=== PATIENT | female | born 1970 ===

== ENCOUNTER 2017-08-16 09:54 | Day surgery (SDC) | payer OTHER, SELFPAY ==
[2017-08-15 11:19] VITALS: RESP 18
[2017-08-16 10:35] VITALS: BMI 34.9
[2017-08-16] MEDS ORDERED: Lidocaine 1% Inj (20ml) ONE ×2 (10:46→12:43)
[2017-08-16] MEDS ORDERED: Bupivacaine 0.5% Inj(30mL) ONE (12:43)
[2017-08-16] MEDS ORDERED: Lidocaine 2% w Epi 1:100,000 Inj IJ ONE (12:43)
[2017-08-16] MEDS ORDERED: ceFAZolin IV 1 gm in Dextrose 1 GM/50 ML BAG IVPB ONE (12:43)
[2017-08-16] MEDS ORDERED: ePHEDrine 50 mg/ml Inj ONE (13:55)
[2017-08-16] MEDS ORDERED: Midazolam 2 MG/2 ML VIAL ONE (13:55)
[2017-08-16] MEDS ORDERED: Succinylcholine 200 mg/10 ml Inj IV ONE (13:55)
[2017-08-16] MEDS ORDERED: Lidocaine 4% (Laryng-O-Jet) Kit MM ONE (13:55)
[2017-08-16] MEDS ORDERED: Propofol 10 mg/ml Inj (20 ML) ONE ×2 (13:55→15:20)
[2017-08-16] MEDS ORDERED: Lactated Ringer's 1,000 ML IV ONE ×2 (14:30→16:30)
[2017-08-16] MEDS ORDERED: Dexamethasone 4 mg/1 ml ONE (15:02)
[2017-08-16] MEDS ORDERED: Dexamethasone 4 mg/1 ml IVP PRN (15:10)
--- NOTE | 2017-08-16 16:06 | PCM.SURG1 ---
Surgeon's Initial Post Op Note - Surgeon's Notes Surgeon: Master Cerna MD Business Management Intern: Sommer Fine PGY-3, Kyrie Rowe PGY-2, Jil Haq PGY-1 Pre-Operative Diagnosis: Left infiltrating ductal carcinoma Operative Findings: See op report Post-Operative Diagnosis: Left infiltrating ductal carcinoma Operation Performed: Lumpectomy with needle localization and sentinel node biopsy of left breast Specimen/Specimens Removed: Left breast mass and needle, sentinel lymph node Estimated Blood Loss: EBL {In ML}: 20 Blood Products Given: N/A Drains Used: No Drains Post-Op Condition: Good Date of Surgery/Procedure: 08/16/17 Time of Surgery/Procedure: 16:06
--- NOTE | 2017-08-16 16:15 | CP.SDSHP ---
Same Day Surgery H & P - History Proposed Procedure: Left breast lumpectomy with needle localization and sentinel lymph node biopsy Pre-Op Diagnosis: Left breast infiltrating ductal carcinoma - Previous Medical/Surgical History Pain: 0. No Pain Previous Surgical History: cholecystectomy, ultrasound guided biopsy of Left breast (07/19/17) - Allergies Allergies: Allergies No Known Allergies Allergy (Verified 08/16/17 10:35) - Physical Exam Vital Signs: Vital Signs 08/16/17 08/16/17 08/16/17 10:23 10:29 12:34 Temperature 98.5 F 97.9 F Pulse Rate 61 61 66 Respiratory 18 18 Rate Blood Pressure 101/64 133/83 O2 Sat by Pulse 99 99 Oximetry - Date & Time Date: 08/16/17 Time: 14:20 Short Stay Discharge - Short Stay Discharge Admitting Diagnosis/Reason for Visit: C50.919/ NEEDLE LOC FOR 1030AM Disposition: HOME/ ROUTINE Referrals: FAMILY PROVIDER,NO [Primary Care Provider] - Gardenia Cerna MD [Staff Provider] - Instructions: Breast Cancer in Women (DC), Breast Conservation Therapy (DC) Additional Instructions (Diet, Activity): Please follow up with Dr. Cerna in the clinic in 1-2 weeks. Keep surgical bra on for 2 days. Dressing can come off in 2 days. There are special bandaids over the incision sites,do not pull or pick these off, they will fall off by themselves. May shower in 2 days after the dressing is removed. Ok to wash area gently with soap and water, do not scrub. Do not bath or get into a hot tub.
--- NOTE | 2017-08-16 16:15 | US ---
HISTORY: Patient is a 38 annual female with history of left breast infiltrating ductal carcinoma, moderately differentiated, Beth grade 2. TECHNIQUE/FINDINGS: Timeout was called for ultrasound guided wire needle localization procedure for lesion: in the position: of the left breast 11-12 o'clock radius 2, approximately 4 cm from the nipple. The mass was identified with ultrasound at the field 07/2012 o'clock radius: Overlying skin was marked for procedure. In a sterile field, overlying skin was cleaned. Three cc of lidocaine 1 percent was utilized for local anesthesia and under ultrasound control, a 10 cm cm needle was placed through the mass immediately inferior to the ultrasound-guided biopsy clip previously deployed. Subsequently, the accompanying wire was advanced through the needle and deployed with the stiffener at the level of the mass successfully. Post placement confirmation ultrasonography was performed. Mammography could not be performed to confirm local placement due to technical failure of the machine precluding issues entirely. The wire was properly secured in good position. Patient tolerated the procedure well with no complications. Postoperative specimen radiograph (performed by standard x-ray unit) demonstrates the needle within the lumpectomy specimen and the biopsy clip immediately cephalad to it. OTHER FINDINGS: None. IMPRESSION: Status post successful ultrasound-guided needle localization of a left breast mass as discussed above.
[2017-08-16] MEDS ORDERED: Oxycodone/Acetaminophen 5/325 mg Tab PO PRN (16:56)
[2017-08-16 18:55] VITALS: O2SAT 95
[2017-08-16 19:49] VITALS: BP 117/72; PULSE 78; TEMP 98
--- NOTE | 2017-08-18 01:28 | OP ---
PROCEDURE DATE: 08/16/2017 SURGEON: Gardenia Cerna MD DETAILER PHARMACEUTICALS: Dr. Fine, Dr. Tamayo, and Dr. Haq ANESTHESIA: General. PREOPERATIVE DIAGNOSIS: Infiltrating ductal carcinoma, left breast. POSTOPERATIVE DIAGNOSIS: Infiltrating ductal carcinoma, left breast. PROCEDURE: Lumpectomy left breast with needle localization and sentinel lymph node biopsy. DESCRIPTION OF OPERATION: With the patient in the supine position under adequate general anesthesia, the left breast was prepped and draped in the usual sterile manner. A ultrasound placed hookwire was noted exiting from the upper outer quadrant of the left breast. The NeoProbe device was used to identify an area at the lower edge of the axilla, just behind the pectoralis major muscle edge where there was activity consistent with a sentinel node and a transverse incision was made in this area, taken down through the subcutaneous tissue. Fatty material was bluntly and using the NeoProbe for guidance, a single 1.5 cm lymph node was identified and dissected out with hemoclips and the node was noted to have activity up to 900 counts. After removal of the node there was minimal baseline activity noted in the axilla. Additional fatty and lymphatic material that were divided in the exposure of the nodes were also sent as additional tissue. This operative site was examined for hemostasis and any small bleeders were cauterized. Attention was then turned to the breast where the hookwire was noted to be passing in a medial direction from the upper outer quadrant and a transverse incision was made extending medially from the area of the wire. Superior and inferior flaps were raised subcutaneously and a generous segment of breast tissue was excised primarily with cautery surrounding the path of the wire, down to what became a palpable nodule close to the chest wall. The breast tissue containing the nodule and the tip of the wire was excised using cautery and removed and sent for radiologic confirmation that the mass had been removed. Upon removing the specimen, it was noted that the mass appeared fairly close to the deep aspect of the specimen and re-excision of the cavity was then performed down to the chest wall and including small amount of pectoralis fascia and some muscle fibers as the mass was fairly close to the chest wall and this specimen was sent separately as re-excision of the lumpectomy site. The operative site was inspected for hemostasis. Any small bleeders were cauterized and both incisions were closed with running subcuticular sutures of 4-0 Monocryl and Steri-Strips. Dry sterile dressings were applied. The patient tolerated the procedure well and transferred to recovery room in stable condition. Estimated blood loss for the procedure was 20 mL. Gardenia Cerna MD MTDUgo
--- NOTE | 2017-08-20 12:42 | NM ---
HISTORY: 47Y Year old female with left breast cancer. TECHNIQUE: Multiple injections of 0.3 mCi of 99m Tc filtered sulfur colloid (total volume of 8 ml) were administered into the left breast periareolar tissue. Anterior and oblique projection images of the chest were subsequently obtained. FINDINGS: Uptake is identified the injection sites surrounding the periareolar space at the left breast and also at the left upper inner quadrant were small node exhibits hyperactivity. IMPRESSION: Positive lymph node activity left upper outer quadrant.
== END 2017-08-16 19:55 | disposition home or self-care (01) ==
LOC: H.OPSURG 09:54
PROVIDERS: ATTEND Specialist
DX: C50.912 Malignant neoplasm of unspecified site of left female breast (principal)
CPT/HCPCS: 19285; 19301; 38530; 78195; 88307; A9541; J0330; J0690; J1100; J1170; J2001; J2250; J2405; J2704; J3010; J7120

== ENCOUNTER 2018-01-21 12:32 | Emergency (ER) | payer OTHER ==
[2018-01-21 12:32] VITALS: BMI 34.9
[2018-01-21] MEDS ORDERED: Albuterol-Ipratrop 3 mg / 0.5 (3 ml) UD INH STA (12:50)
--- NOTE | 2018-01-21 12:53 | ED PDOC ---
History of Present Illness History of Present Illness: 47 y/o female with past medical history of breast cancer presents to the ED complaining of productive cough. Patient underwent surgery in August 2017 and is undergoing radiation treatment currently. Reports the she feels like she had cough since August. Denies taking any medications. Denies fever,chills or any further medical complaints. PMD: none HPI: Influenza Time Seen by Provider: 01/21/18 12:46 Chief Complaint: Cough, Cold, Congestion Chief Complaint (Provider): Cough, Cold, Congestion History Per: Patient Exam Limitations: no limitations Onset/Duration Of Symptoms: Other (since August 2017) Symptoms include: denies: fever Past Medical History Reviewed: Historical Data, Nursing Documentation, Vital Signs Vital Signs: Last Vital Signs Temp 98.0 F 01/21/18 12:34 Pulse 91 H 01/21/18 12:34 Resp 16 01/21/18 12:34 BP 109/81 01/21/18 12:34 Pulse Ox 98 01/21/18 12:34 - Medical History Other PMH: Breast cancer - Surgical History Surgical History: Cholecystectomy - Family History Family History: States: Unknown Family Hx - Home Medications Home Medications: Ambulatory Orders Medication Instructions Recorded Acetaminophen [Non-Aspirin Pain 500 mg PO PRN PRN 08/16/17 Relief] oxyCODONE/Acetaminophen [Percocet 1 mg PO Q4 PRN 08/16/17 5/325 mg Tab] Cetirizine HCl/Pseudoephedrine 1 each PO DAILY #15 tab.er.12h 01/21/18 [Zyrtec-D Tablet] Fluticasone Nasal [Flonase] 2 spr NS DAILY #1 bottle 01/21/18 Promethazine/Codeine 5 ml PO DAILY PRN #100 ml 01/21/18 [Codeine/Promethazine 10 MG/5 Ml-6.25 MG/5 Ml] - Allergies Allergies/Adverse Reactions: Allergies Allergy/AdvReac Type Severity Reaction Status Date / Time No Known Allergies Allergy Verified 01/21/18 12:34 Review of Systems ROS Statement: Except As Marked, All Systems Reviewed And Found Negative (As per HPI, otherwise negatve) Constitutional: Negative for: Fever, Chills Respiratory: Positive for: Cough Physical Exam - Reviewed Nursing Documentation Reviewed: Yes Vital Signs Reviewed: Yes - Physical Exam Appears: Positive for: Non-toxic, No Acute Distress Head Exam: Positive for: ATRAUMATIC, NORMAL INSPECTION, NORMOCEPHALIC Skin: Positive for: Normal Color, Warm, Dry Eye Exam: Positive for: Normal appearance ENT: Positive for: Nasal Congestion Neck: Positive for: Normal Cardiovascular/Chest: Positive for: Regular Rate, Rhythm. Negative for: Murmur Respiratory: Positive for: Decreased Breath Sounds, Wheezing (mild) Back: Positive for: Normal Inspection Extremity: Positive for: Normal ROM. Negative for: Deformity Neurologic/Psych: Positive for: Alert, Oriented Medical Decision Making Medical Decision Making: Time: 12:52 Initial Impression: cough Plan: VBG EKG ProBNP BMP Troponin CBC w/ differential CXR Albuterol/Ipratropium 3ml INH Blood culture Peak flow pre/post tx Reevaluation Scribe Attestation: Documented by Jeff Stern acting as a scribe for Thong Stern MD. Scribe Attestation: All medical record entries made by the Scribe were at my direction and personally dictated by me. I have reviewed the chart and agree that the record accurately reflects my personal performance of the history, physical exam, medical decision making, and the department course for this patient. I have also personally directed, reviewed, and agree with the discharge instructions and disposition. - Laboratory Results Result Diagrams: 01/21/18 14:09 01/21/18 14:09 - ECG ECG Rhythm: Positive for: Sinus Rhythm (no ectopy no acute changes HR 73 bpm) O2 Sat by Pulse Oximetry: 98 (RA) Pulse Ox Interpretation: Normal - Radiology X-Ray: Read By Radiologist (no acute infiltrate) - Progress ED Course And Treament: Douneb x 1 dose zofran 4 mg odt for vomiting. patient states she has had post tussive vomiting this week. Patient re-examined. Lungs CTAB. Patient states she does not feel as if albuterol helped her cough or symptoms. Disposition - Clinical Impression Clinical Impression: Cough - Patient ED Disposition Is Patient to be Admitted: No - Disposition Referrals: [facility] [place] [Outside] Disposition: Routine/Home Disposition Time: 15:04 Condition: FAIR Prescriptions: Cetirizine HCl/Pseudoephedrine [Zyrtec-D Tablet] 1 each PO DAILY #15 tab.er.12h Fluticasone Nasal [Flonase] 2 spr NS DAILY #1 bottle Promethazine/Codeine [Codeine/Promethazine 10 MG/5 Ml-6.25 MG/5 Ml] 5 ml PO DAILY PRN #100 ml PRN Reason: Cough Instructions: Cough in Adults Forms: [facility] (Macanese) Print Language: CYMRAES
[2018-01-21] MEDS ORDERED: Albuterol-Ipratrop 3 mg / 0.5 (3 ml) UD ONE (12:57)
--- NOTE | 2018-01-21 13:28 | RAD ---
HISTORY: COUGH COMPARISON: No prior. TECHNIQUE: Chest PA and lateral FINDINGS: LUNGS: No active pulmonary disease. PLEURA: No significant pleural effusion identified. No pneumothorax apparent. CARDIOVASCULAR: Normal. OSSEOUS STRUCTURES: No significant abnormalities. VISUALIZED UPPER ABDOMEN: Normal. OTHER FINDINGS: Surgical clips left axilla and chest wall. IMPRESSION: No acute infiltrate.
[2018-01-21 13:34] LABS: VENOUS BLOOD GAS BASE EXCESS 1.5 mmol/L (0.0-2.0); VENOUS BLOOD GAS PCO2 43 mmHg (40-60); VENOUS BLOOD GAS PO2 36 mm/Hg (30-55)
[2018-01-21 14:17] LABS: BASO % 0.7 % (0.0-2.0); EOS # 0.4 K/uL (0.0-0.7); EOS % 6.4 % (0.0-4.0); HEMOGLOBIN 12.9 g/dL (12.0-16.0); LYMPH # 1.2 K/uL (1.0-4.3); LYMPH % 19.9 % (20.0-40.0); MEAN CELL VOLUME 82.9 fl (81.0-99.0); MEAN CORPUSCULAR HEMOGLOBIN 28.4 pg (27.0-31.0); MEAN CORPUSCULAR HGB CONC 34.3 g/dL (33.0-37.0); MEAN PLATELET VOLUME 7.8 fl (7.2-11.7); MONO # 0.6 K/uL (0.0-0.8); MONO % 9.1 % (0.0-10.0); NEUT % 63.9 % (50.0-75.0); RBC 4.55 Mil/uL (3.80-5.20); RED CELL DISTRIBUTION WIDTH 16.2 % (11.5-14.5); WHITE BLOOD COUNT 6.2 K/uL (4.8-10.8)
[2018-01-21 14:29] LABS: BLOOD UREA NITROGEN 12 mg/dl (7-17); CALCIUM 9.4 mg/dL (8.4-10.2); GFR AFRICAN-AMERICAN > 60; GFR NON-AFRICAN AMERICAN > 60
[2018-01-21 14:41] LABS: B-TYPE NATRIURETIC PEPTIDE 33.1 pg/ml (0-450)
[2018-01-21 15:04] VITALS: RESP 18
[2018-01-21 15:12] VITALS: BP 108/68; PULSE 76; TEMP 98; O2SAT 99
--- NOTE | 2018-01-23 11:21 | CARD ---
APPROVED REPORT EKG Measurement Heart [id number] <Conclusion> Normal sinus rhythm Normal ECG
== END 2018-01-21 15:12 | disposition home or self-care (01) ==
LOC: H.ER 12:32
DX: R05 Cough (principal); Z85.3 Personal history of malignant neoplasm of breast